=== PATIENT | male | born 1960 | race Caucasian/White ===

== ENCOUNTER 2020-05-26 06:02 | Day surgery (SDC) | payer BC ==
[~2020-05-26 06:02] MED LIST: ALPRAZolam 0.25 MG TAB PO PRN; ALPRAZolam 0.5 MG TAB PO PRN; ASPIRIN 325 MG TAB PO STA; ATORVASTATIN 80 MG TAB PO STA; HEPARIN SODIUM,PORCINE 10,000 UNIT in SODIUM CHLORIDE 0.9% 1,000 ML IRRIGATION PRN; HEPARIN SODIUM,PORCINE 2,500 UNIT in SODIUM CHLORIDE 0.9% 250 ML IRRIGATION PRN; NITROGLYCERIN SL TABS 0.4 MG TAB SUBLINGUAL PRN; SODIUM CHLORIDE 0.9% 1,000 ML in EMPTY BAG 1 BAG IV ONE
[2020-05-26] MEDS ORDERED: SODIUM CHLORIDE 0.9% 1,000 ML IV ONE (06:16)
[2020-05-26] MEDS ORDERED: LIDOCAINE 1% INJ 10MG/ML (20 ML MDV) ONE (07:19)
[2020-05-26] MEDS ORDERED: VERAPAMIL 2.5 MG/ML 2 ML AMP ONE (07:19)
[2020-05-26] MEDS ORDERED: fentaNYL (PF) 50 MCG/ML 2 ML AMP ONE (07:32)
[2020-05-26] MEDS ORDERED: fentaNYL (PF) 50 MCG/ML 2 ML AMP IVP ONE (07:35)
[2020-05-26] MEDS ORDERED: MIDAZOLAM 2 MG/2 ML VIAL IVP ONE ×2 (07:35→08:01)
[2020-05-26] MEDS ORDERED: LIDOCAINE 1% INJ 10MG/ML (20 ML MDV) SQ ONE (07:37)
[2020-05-26] MEDS ORDERED: VERAPAMIL SYRINGE (5 MG/10 ML) INTRAARTER ONE (07:37)
[2020-05-26] MEDS ORDERED: HEPARIN SODIUM 1,000 UN/ML (10ML VL) ONE (07:44)
[2020-05-26] MEDS ORDERED: HEPARIN SODIUM 1,000 UN/ML (10ML VL) IV ONE ×2 (07:44→07:52)
[2020-05-26] MEDS ORDERED: CLOPIDOGREL 75 MG TAB ONE (07:52)
[2020-05-26] MEDS ORDERED: CLOPIDOGREL 75 MG TAB PO ONE (08:02)
[2020-05-26] MEDS ORDERED: IOPAMIDOL-370 125ML BTL INJ ONE (08:11)
[2020-05-26] MEDS ORDERED: NITROGLYCERIN 1000MCG/10ML SYRINGE INTRACORON ONE (08:11)
[2020-05-26] MEDS ORDERED: IOPAMIDOL-370 100ML BTL INJ ONE (08:20)
[2020-05-26] MEDS ORDERED: NITROGLYCERIN SL TABS 0.4 MG TAB SUBLINGUAL PRN (08:35)
[2020-05-26] MEDS ORDERED: RX INFO: IV CONTRAST WAS GIVEN 1 EACH MISC MISCELLANE PRN (08:35)
[2020-05-26] MEDS ORDERED: ZOLPIDEM 5 MG TAB PO PRN (08:35)
[2020-05-26] MEDS ORDERED: ATROPINE SULFATE 0.1 MG/ML 10ML SYRINGE IV PRN (08:35)
[2020-05-26] MEDS ORDERED: MAG HYDROX/AL HYDROX/SIMETH 30 ML CUP PO PRN (08:35)
[2020-05-26] MEDS ORDERED: SODIUM CHLORIDE 0.9% 1,000 ML IV SCH (08:45)
[2020-05-26] MEDS: ASPIRIN 81 MG PO SCH (08:59)
[2020-05-26] MEDS ORDERED: ISOSORBIDE MONONITRATE ER 30 MG TAB.ER.24H PO SCH (09:00)
--- NOTE | 2020-05-26 10:07 | CC ---
CARDIAC CATHETERIZATION REPORT Mr. Tenorio is a 60-year-old male who presented with symptoms of exertional chest discomfort, hypertension, hyperlipidemia. In view of that, recommendation was made regarding cardiac catheterization. The procedures, risks, and complication were discussed with the patient who is in full understanding and agreement. PROCEDURE: Patient was brought to maintenance shop laborer in a fasting semi-sedated state after receiving fentanyl and Benadryl and achieving moderate conscious sedated state. Using Xylocaine anesthesia and Seldinger technique a 6-Faroese sheath was introduced right radial artery. Selective right and left coronary angiography performed using 5-Faroese 3.5 bend right and left Kee catheter. Multiple views of the coronary artery including hemiaxial views obtained. Following that, angioplasty and stenting was performed following that 5-Faroese tight pigtail catheter was introduced in the left ventricle and left ventricular end-diastolic pressure was calculated. Following that catheter and sheath were removed. Hemostasis was obtained with deployment of TR band. There was no immediate complication. Patient was returned to his room in stable condition. FINDINGS: LEFT MAIN: This is a large-sized vessel, bifurcating into left circumflex, left anterior descending artery. Left main coronary artery has no evidence of high-grade stenosis. LEFT ANTERIOR DESCENDING ARTERY: This is a heavily calcified vessel in the proximal segment, giving rise to a moderately sized diagonal branch. The diagonal branch has a 50% plaque proximally. The lumen of the diagonal branch is small in caliber. The left anterior descending artery has no evidence of high-grade stenosis. LEFT CIRCUMFLEX: This is a nondominant vessel, large in caliber giving rise to 3 obtuse marginal branches. The first and second are the largest in caliber. The first is very proximal. The second obtuse marginal branch has a 99% stenosis in the proximal segment. The rest of the vessel has no evidence of high-grade stenosis. RIGHT CORONARY ARTERY: This is a dominant vessel bifurcating distally PDA and posterolateral segment and branches. The right coronary artery has diffuse intimal disease in the mid segment up to 60% to 70%. Distally, it is totally occluded with minimal antegrade flow. COLLATERALS: There is good collateral from the left coronary system through the septal perforators to the PDA and PLV. LEFT VENTRICULOGRAM: Left ventriculogram was not performed. HEMODYNAMICS: There was no gradient across the aortic valve. The left ventricular end-diastolic pressure was 6-8 mmHg. CONCLUSION: 1. Chronically occluded distal right coronary artery. 2. Critical stenosis in the second obtuse marginal branch. 3. Mild disease in the small diagonal branch. RECOMMENDATION: In view of finding anatomy, I recommend proceeding with angioplasty and stenting of the left circumflex obtuse marginal branch. The procedure, risks and complications were discussed with the patient who is in full understanding and agreement. MMSTELLA / JUAN DANIELN: [id number] /
--- NOTE | 2020-05-26 10:28 | PTCA ---
PERCUTANEOUSTRANS CORORONARY ANGIOGRAPHY Mr. Tenorio is a 60-year-old male with a known history of hypertension and hyperlipidemia, who presented with symptoms of angina pectoris, underwent cardiac catheterization was found to have critical stenosis involving the second obtuse marginal branch. In view of that, recommendation was made regarding angioplasty and stenting. The procedure as well as the risks and the complications were discussed with the patient who is in full understanding and agreement. PROCEDURE: A 6-American FL 3.5 guiding catheter was introduced in the system. After cannulating the left main, a 0.014 balanced medium weight J-wire was advanced across the lesion, positioned distally then a 2.5 x 12 mm NC Trek balloon was advanced and one inflation at 10 atmospheres was done. Following that, the balloon was removed and a 2.5 x 15 mm Xience [place] stent was advanced, deployed and post dilated at 16 atmospheres. After the last inflation, after appropriate wait, the balloon and the guidewire were withdrawn back in the guiding catheter. Images were obtained and repeated. Those images reveal stable successful stenting. At that point, the guiding catheter, the balloon and the guidewire were removed and a 5-American tight pigtail catheter introduced in the left ventricle and left ventricular end-diastolic pressure was calculated. Following that, catheter and sheath were removed. Hemostasis was obtained with deployment of a TR band. There was no immediate complication. Patient was returned to his room in stable condition. Of note, the patient received a total of 9000 units of intravenous heparin throughout the procedure and his ACT was monitored. He received intraarterial verapamil. He had no chest discomfort or significant EKG changes with the inflations. RESULTS: Successful stenting of the second obtuse marginal branch with reduction of stenosis from 99% to 0%. RECOMMENDATION: Patient will be continued on aspirin, Plavix and statin with the aggressive coronary risk modification that has been initiated and he will be evaluated to undergo attempt to percutaneous revascularize the totally occluded right coronary artery. Those findings and recommendations were discussed with the patient and his family who are in full understanding and agreement. Duration of sedation is 43 minutes. MMJESUSL / IJN: [id number] /
--- NOTE | 2020-05-26 10:31 | LTR ---
May 26, 2020 Re: Rafi Tenorio Dear Dr. Betancourt: I had the opportunity to perform cardiac catheterization and coronary angioplasty and stenting on Mr. Tenorio at [facility] on the 26 of May and a full copy of the procedure note will be forwarded to you. In brief, he was found to have a critical stenosis involving the second obtuse marginal branch with totally occluded distal right coronary artery. He underwent successful stenting of the obtuse marginal branch and he will be brought back to attempt to recanalize the chronically occluded right coronary artery. I will keep you updated on his progress. Thank you again for allowing me the opportunity to participate in his care. Please feel free to call for any questions. Sincerely yours, MD GREY Weaver / JUAN DANIELN: [id number] /
[2020-05-26 14:51] VITALS: BMI 31.5
[2020-05-26] MEDS ORDERED: ACETAMINOPHEN TAB 500 MG TAB PO STA (17:03)
[2020-05-26 20:13] VITALS: RESP 16
[2020-05-26] MEDS ORDERED: ATORVASTATIN 80 MG TAB PO SCH (21:00)
[2020-05-26] MEDS ORDERED: METOPROLOL SUCCINATE (ER) 25 MG TAB.ER.24H PO SCH (21:00)
[2020-05-27 02:46] VITALS: PULSE 69
[2020-05-27 05:45] LABS: African American GFR (CKD) 80 (>60 ml/min/1.73 sqM); Anion Gap 5 mmol/L; Blood Urea Nitrogen 13 mg/dL (9-20); Calcium 11.2 mg/dL (8.4-10.2); Carbon Dioxide 27 mmol/L (22-30); Chloride 106 mmol/L (98-107); Cholesterol 208 mg/dL (<200); Glucose 97 mg/dL (74-99); HDL Cholesterol 23 mg/dL (40-60); Non-African American GFR(CKD) 69 (>60 ml/min/1.73 sqM); Potassium 5.3 mmol/L (3.5-5.1); Sodium 138 mmol/L (137-145)
[2020-05-27 05:53] LABS: Triglycerides 734 mg/dL (<150)
[2020-05-27 07:42] VITALS: BP 150/92; TEMP 98.8
[2020-05-27] MEDS ORDERED: lisinopriL 10 MG TAB PO SCH (09:00)
[2020-05-27] MEDS ORDERED: CLOPIDOGREL 75 MG TAB PO SCH (09:00)
[2020-05-27] MEDS ORDERED: FENOFIBRATE 160 MG TAB PO SCH (09:00)
--- NOTE | 2020-05-27 09:05 | PN ---
PROGRESS NOTE Mr. Tenorio is a 60-year-old male who was recently diagnosed with hypertension, hyperlipidemia who had symptoms consistent with angina pectoris, underwent cardiac catheterization was found to have a chronic occlusion of the right coronary artery with critical stenosis in the second obtuse marginal branch. He underwent stenting of the obtuse marginal branch. He is doing well today. He is denying any chest pain. No dizziness. No palpitation. No nausea. He is complaining of headache. He continues to be on aspirin once a day, Lipitor 75 mg daily, Lipitor 80 mg daily, isosorbide mononitrate 30 mg daily, lisinopril 10 mg daily, metoprolol succinate 25 mg daily. PHYSICAL EXAMINATION: Blood pressure running in the 130s to 150s with the heart rate in the 60s. LUNGS: Clear. HEART: Regular rate and rhythm. S1, S2. No S3. No rub. ABDOMEN: Soft, nontender. EXTREMITIES: No edema. Right radial pulse intact. LAB DATA: Lab data revealed BUN and creatinine of 13 and 1.15. Potassium is 5.3. Cholesterol is 208, triglycerides of 734. EKG revealed no acute changes. IMPRESSION: 1. Status post stenting of the left circumflex second obtuse marginal branch. 2. Chronic occluded right coronary artery. 3. Hypertension. 4. Hyperlipidemia with severe hypertriglyceridemia. RECOMMENDATION: I will add to his regimen fenofibrate. I will stop the isosorbide mononitrate because of the headache. He should be able to be discharged home today and followed next week to make a decision regarding re-admission for attempt to recanalize the right coronary artery. MMODL / IJN: [id number] /
[2020-05-27] MEDS: ASPIRIN 81 MG PO SCH (09:13)
== END 2020-05-27 09:30 | disposition home or self-care (01) ==
LOC: CATHCVL 06:02 → 6NMEDSUR 12:03 → CATHCVL 05-27 09:30
PROVIDERS: ATTEND Internal Medicine Interventional Cardiology
DX: I25.110 Atherosclerotic heart disease of native coronary artery with unstable angina pectoris (principal); I25.82 Chronic total occlusion of coronary artery; R07.89 Other chest pain; R06.09 Other forms of dyspnea; R42 Dizziness and giddiness; I10 Essential (primary) hypertension; E78.2 Mixed hyperlipidemia; Z79.899 Other long term (current) drug therapy; Z87.891 Personal history of nicotine dependence; Z79.82 Long term (current) use of aspirin; Z82.49 Family history of ischemic heart disease and other diseases of the circulatory system
CPT/HCPCS: 93458; 85347; 80061; 80048; C9600; C1769 ×2; C1887; C1725; C1874; C1894; J2250; J2001; J3010; J1644; Q9967 ×2

== ENCOUNTER → 2020-06-16 | Outpatient (CLI) | payer BC ==
--- NOTE | 2020-06-16 09:50 | US ---
EXAMINATION TYPE: US thyroid st tissue head/neck DATE OF EXAM: 06/16/2020 COMPARISON: NONE CLINICAL HISTORY: 60-year-old male E04.1 Thyroid nodule. Lump rt side of neck TECHNIQUE: Multiple sonographic images of the thyroid gland are obtained. FINDINGS: GLAND SIZE: Right Lobe: 5.1 x 1.8 x 1.8 cm Overall Parenchyma: homogenous Left Lobe: 3.8 x 1.0 x 1.4 cm Overall Parenchyma: homogeneous Isthmus Thickness: 0.48 cm NODULES RIGHT: # of nodules measured on right: 0 Hypoechoic lesion versus cystic with some internal echoes measuring 1.0 x .4 x .6 cm noted at the pat ient's palpable site located just above the right lobe of the thyroid gland. LEFT: # of nodules measured on left: 0 ISTHMUS: # of nodules measured in the isthmus: 0 Bilateral neck scanned, no evidence of lymphadenopathy. IMPRESSION: No discrete nodule within the thyroid gland itself. At the patient's right-sided palpable site, there is a 1 cm lesion just above the thyroid gland. A thyroglossal duct cyst and nonenlarged lymph node a re some differential considerations. Consider contrast enhanced CT of the neck
== END | disposition home or self-care (01) ==
LOC: RADUSWWP 08:27
PROVIDERS: ATTEND Otolaryngology
DX: E07.89 Other specified disorders of thyroid (principal); E83.52 Hypercalcemia
CPT/HCPCS: 76536; 83970

== ENCOUNTER 2020-06-18 07:52 | Day surgery (SDC) | payer BC ==
[2020-06-12 11:28] VITALS: BMI 31.4
[2020-06-18] MEDS ORDERED: SODIUM CHLORIDE 0.9% 1,000 ML IV ONE (08:05)
[2020-06-18] MEDS ORDERED: LIDOCAINE 1% INJ 10MG/ML (20 ML MDV) ONE (08:20)
[2020-06-18 08:24] LABS: Basophils # (A) 0.1 k/uL (0-0.2); Basophils % (A) 1 %; Eosinophils # (A) 0.2 k/uL (0-0.7); Eosinophils % (A) 2 %; HCT 42.5 % (39.0-53.0); HGB 14.5 gm/dL (13.0-17.5); Lymphocytes # (A) 2.4 k/uL (1.0-4.8); Lymphocytes % (A) 29 %; MCH 31.7 pg (25.0-35.0); MCHC 34.1 g/dL (31.0-37.0); MCV 92.9 fL (80.0-100.0); Mean Platelet Volume 7.2; Monocytes # (A) 0.5 k/uL (0-1.0); Monocytes % (A) 6 %; Neutrophils # (A) 5.1 k/uL (1.3-7.7); Neutrophils % (A) 61 %; Platelet Count 311 k/uL (150-450); RBC 4.58 m/uL (4.30-5.90); WBC 8.4 k/uL (3.8-10.6)
[2020-06-18] MEDS ORDERED: VERAPAMIL 2.5 MG/ML 2 ML AMP ONE (08:28)
[2020-06-18] MEDS ORDERED: HEPARIN SODIUM 1,000 UN/ML (10ML VL) ONE ×2 (08:50→11:28)
[2020-06-18] MEDS ORDERED: fentaNYL (PF) 50 MCG/ML 2 ML AMP ONE (08:50)
[2020-06-18] MEDS ORDERED: fentaNYL (PF) 50 MCG/ML 2 ML AMP IVP ONE (09:38)
[2020-06-18] MEDS ORDERED: LIDOCAINE 1% INJ 10MG/ML (20 ML MDV) SQ ONE (09:40)
[2020-06-18] MEDS: MIDAZOLAM 2 MG/2 ML VIAL IVP ONE ×2 (09:40→09:54)
[2020-06-18] MEDS ORDERED: VERAPAMIL SYRINGE (5 MG/10 ML) INTRAARTER ONE (09:42)
[2020-06-18] MEDS: HEPARIN SODIUM 1,000 UN/ML (10ML VL) IV ONE ×2 (09:44→09:53)
[2020-06-18] MEDS ORDERED: IOPAMIDOL-370 125ML BTL INJ ONE ×2 (10:17→11:02)
[2020-06-18] MEDS ORDERED: NITROGLYCERIN 1000MCG/10ML SYRINGE INTRACORON ONE (10:39)
[2020-06-18] MEDS ORDERED: MIDAZOLAM 2 MG/2 ML VIAL IVP ONE (10:48)
[2020-06-18] MEDS ORDERED: IOPAMIDOL-370 100ML BTL INJ ONE (11:25)
[2020-06-18] MEDS ORDERED: HEPARIN SODIUM 1,000 UN/ML (10ML VL) IV ONE (11:27)
[2020-06-18] MEDS ORDERED: MAG HYDROX/AL HYDROX/SIMETH 30 ML CUP PO PRN (11:37)
[2020-06-18] MEDS ORDERED: ZOLPIDEM 5 MG TAB PO PRN (11:37)
[2020-06-18] MEDS ORDERED: RX INFO: IV CONTRAST WAS GIVEN 1 EACH MISC MISCELLANE PRN (11:37)
[2020-06-18] MEDS ORDERED: NITROGLYCERIN SL TABS 0.4 MG TAB SUBLINGUAL PRN (11:37)
[2020-06-18] MEDS ORDERED: ATROPINE SULFATE 0.1 MG/ML 10ML SYRINGE IV PRN (11:37)
[2020-06-18] MEDS ORDERED: SODIUM CHLORIDE 0.9% 1,000 ML IV SCH (11:45)
--- NOTE | 2020-06-18 12:13 | PTCA ---
PERCUTANEOUSTRANS CORORONARY ANGIOGRAPHY CORONARY ANGIOPLASTY PROCEDURE NOTE Mr. Tenorio is a 60-year-old male with a known history of coronary artery disease who recently underwent cardiac catheterization was found to have a totally occluded RCA with critical stenosis in the obtuse marginal branch, underwent stenting of the obtuse marginal branch. He has been admitted electively to undergo stenting of the RCA. The procedure as well as the risks and the complications were discussed with the patient who is in full understanding and agreement. PROCEDURE: Patient was brought to the engineering lab technician in a fasting semi-sedated state after receiving fentanyl and Benadryl and achieving moderate conscious sedated state. Using Xylocaine anesthesia and Seldinger technique, a 6-Sierra Leonean sheath was introduced in the right radial artery. Selective right and left coronary angiography performed using 6-S[place]an AL 0.75 guiding catheter. After cannulating the right coronary ostium, a SuperCross microcatheter with a 0.014 balanced medium weight J-wire were advanced. The wire was unsuccessful in crossing the lesion. At that point, the wire was removed and a 0.014 Whisper J-wire was advanced and was unsuccessful crossing the lesion. At that time, the wire was removed and a Fielder XT wire was advanced, was able to cross the lesion, positioned distally. Subsequently, the microcatheter was removed and a 1.0 x 8 mm Sapphire balloon was advanced and multiple inflations throughout the distal vessel were done. Following that, the balloon was removed and a 1.5 x 12 mm mini Trek balloon was advanced and multiple inflations at maximum of 12 atmospheres were done. Following that, the balloon was removed and the SuperCross was reintroduced and the wire was exchanged to a 0.014 balanced medium weight J-wire. After removing the microcatheter, a 2.25 x 15 mm NC Trek balloon was advanced and multiple inflations were done through the vessel at a maximum of 12 atmospheres. After removing that balloon, a 2.5 x 20 mm NC Emerge balloon was advanced and multiple inflations were done at 12 atmospheres. Following that, a 3.0 x 38 mm Xience [place] stent was deployed distally and postdilated at 16 atmospheres. After removing the balloon, the another 3.0 x 38 mm Xience [place] stent was deployed proximal to that stent and postdilated at 16 atmospheres. Following that, the balloon was removed and a 3.25 x 33 mm Xience [place] stent was deployed proximally and postdilated 16 atmospheres. Following that, the balloon was removed and a [employer] Nikolai Eye alatna IVUS catheter was introduced and measurement were obtained. Following that, the IVUS catheter was removed and a 4.0 x 20 mm NC Trek balloon was advanced and multiple inflations throughout the vessel were done at maximum of 12 atmospheres. After the last inflation, after appropriate wait, the balloon and the guidewire were withdrawn back in the guiding catheter. Images were obtained and repeated. Those images reveal stable successful stenting. At that point, the guiding catheter, the balloon and guidewire were removed. The sheath was removed. Hemostasis was obtained with deployment of a TR band. There was no immediate complication. Patient was returned to his room in stable condition. Of note, the patient received a total of 11,000 units of intravenous heparin throughout the procedure, his ACT was followed. He was continued on clopidogrel. He had no chest discomfort or EKG changes with the inflations. RESULTS: Successful stenting and recanalization of a totally occluded RCA with reduction of stenosis from 100% to 0%. RECOMMENDATION: Patient will be continued on aspirin, Plavix, beta keo, FADI inhibitor and statin. The importance of dual antiplatelet treatment were discussed with the patient and his family and they are in full understanding and agreement. Duration of the sedation is 108 minutes. MMODL / IJN: [id number] /
--- NOTE | 2020-06-18 12:17 | LTR ---
June 18, 2020 Re: Rafi Nevarezters Dear Dr. Betancourt: I had the opportunity to perform coronary angioplasty and stenting on Mr. Tenorio at [facility] on 18 of June and a full copy of the procedure note will be forwarded to you. In brief, he underwent successful recanalization of a chronically occluded right coronary artery. I am hopeful that this procedure will stabilize his status. Thank you again for allowing me the opportunity to participate in his care. Please feel free to call for any questions. Sincerely yours, MD GREY Weaver / TOM: [id number] /
[2020-06-18] MEDS ORDERED: METOPROLOL SUCCINATE (ER) 25 MG TAB.ER.24H PO SCH (21:00)
[2020-06-18] MEDS ORDERED: ATORVASTATIN 40 MG TAB PO SCH (21:00)
[2020-06-19 07:15] LABS: African American GFR (CKD) 65 (>60 ml/min/1.73 sqM); Anion Gap 7 mmol/L; Blood Urea Nitrogen 15 mg/dL (9-20); Calcium 11.4 mg/dL (8.4-10.2); Carbon Dioxide 24 mmol/L (22-30); Chloride 106 mmol/L (98-107); Glucose 123 mg/dL (74-99); Non-African American GFR(CKD) 56 (>60 ml/min/1.73 sqM); Sodium 137 mmol/L (137-145)
[2020-06-19 07:47] VITALS: BP 101/66; PULSE 72; RESP 16; TEMP 97.9
--- NOTE | 2020-06-19 08:21 | PN ---
PROGRESS NOTE Mr. Tenorio is a 60-year-old male with history of coronary artery disease who underwent angioplasty and stenting of the obtuse marginal branch 2 weeks ago was found to have totally occluded right coronary artery, underwent stenting of that vessel. He is doing well this morning. He is feeling well. His breathing stable. No dizziness. No palpitation. No nausea. He continues to be on aspirin once a day, Lipitor 40 mg daily, Plavix 75 mg daily, fenofibrate 160 mg daily, lisinopril 10 mg daily, metoprolol succinate 25 mg daily. PHYSICAL EXAMINATION: Blood pressure 106/60 with the heart rate in the 70s. LUNGS: Clear. HEART: Regular rate and rhythm. S1, S2. No S3. No rub. ABDOMEN: Soft, nontender. EXTREMITIES: No edema. Right radial pulse intact. LAB DATA: EKG shows no acute changes. BUN and creatinine 15 and 1.35. Potassium 5.0. Hemoglobin 14.5. IMPRESSION: 1. Status post stenting of the totally occluded right coronary artery. 2. Prior stenting of the obtuse marginal branch. 3. Hypertension. 4. Hyperlipidemia. RECOMMENDATION: Patient will be discharged home today and followed as an outpatient. MMODL / IJN: [id number] /
[2020-06-19] MEDS ORDERED: ASPIRIN 81 MG PO SCH (09:00)
[2020-06-19] MEDS ORDERED: FENOFIBRATE 160 MG TAB PO SCH (09:00)
[2020-06-19] MEDS ORDERED: lisinopriL 10 MG TAB PO SCH (09:00)
[2020-06-19] MEDS ORDERED: CLOPIDOGREL 75 MG TAB PO SCH (09:00)
== END 2020-06-19 09:45 | disposition home or self-care (01) ==
LOC: CATHCVL 07:52 → 6NMEDSUR 11:26 → CATHCVL 06-19 09:45
PROVIDERS: ATTEND Internal Medicine Interventional Cardiology
DX: I25.10 Atherosclerotic heart disease of native coronary artery without angina pectoris (principal); I25.82 Chronic total occlusion of coronary artery; I10 Essential (primary) hypertension; E78.2 Mixed hyperlipidemia; E78.5 Hyperlipidemia, unspecified; Z82.49 Family history of ischemic heart disease and other diseases of the circulatory system; Z95.5 Presence of coronary angioplasty implant and graft; Z79.02 Long term (current) use of antithrombotics/antiplatelets; Z79.82 Long term (current) use of aspirin; Z79.899 Other long term (current) drug therapy
CPT/HCPCS: 85347; 80048; 85025; C9607; C1769 ×4; C1887 ×2; C1725 ×5; C1753; C1874; C1894; J2250; J2001; J3010; J1644; Q9967 ×2

== ENCOUNTER → 2020-07-04 | Outpatient (CLI) | payer BC ==
--- NOTE | 2020-07-04 11:36 | CT ---
EXAMINATION TYPE: CT soft tissue neck w con DATE OF EXAM: 07/04/2020 COMPARISON: None HISTORY: R22.1 Right neck mass, E21.3 elevated pth CONTRAST: CT scan of the neck is performed with IV Contrast, patient injected Isovue 300/[address] of the neck was performed from the skull base through the lung apices. The markers placed at the site of clinical concern right neck corresponds to a 1.7 cm lipoma. No evid ence for solid mass. AIRWAY: The supraglottic, glottic, and subglottic portions of the airway appear patent and free of mass. SALIVARY GLANDS: The submandibular and parotid glands are free of mass or inflammatory process. THYROID GLAND: No nodules or masses seen. LYMPH NODES: No adenopathy seen greater than 1cm. LUNG APICES: No nodule or mass is seen. OTHER: Vascular structures are patent. No significant degenerative change of the cervical spine. N o abscess seen. IMPRESSION: The markers placed at the site of clinical concern right neck corresponds to a 1.7 cm lipoma. No evid ence for solid mass.
--- NOTE | 2020-07-05 06:51 | NM ---
EXAMINATION TYPE: Portable chest DATE OF EXAM: 07/05/2020 COMPARISON: 07/04/2020 HISTORY: Shortness of breath TECHNIQUE: Single upright AP portable chest is obtained. FINDINGS: There are scattered partially consolidative opacities in the lung bases bilaterally. The interstitial prominence seen in the upper lobes is diminished compared to the prior study. There is no pneumothor ax. There is a Midway-Phyllis catheter unchanged in position. There has been interval removal of the ET tu be and NG tube. The osseous structures are intact. IMPRESSION: Interval improvement in the bilateral interstitial edema. Few scattered infiltrates are seen in the l ower lobes bilaterally left greater than right. No change in position of the Midway-Phyllis catheter. NG t ube.
== END | disposition home or self-care (01) ==
LOC: RADCTMAIN 10:30
PROVIDERS: ATTEND Otolaryngology
DX: R22.1 Localized swelling, mass and lump, neck (principal); E21.3 Hyperparathyroidism, unspecified
CPT/HCPCS: 70491; 78071; A9500; Q9967

== ENCOUNTER → 2020-10-06 | Outpatient (CLI) | payer BC ==
--- NOTE | 2020-10-06 20:34 | FL ---
EXAMINATION TYPE: FL barium swallow w video DATE OF EXAM: 10/06/2020 CLINICAL HISTORY: 60 year-old male R13.10 Dysphagia. Sensation of liquid sticking in the throat. TECHNIQUE: Deglutition study is performed utilizing thin liquid barium, honey and nectar thick liqui d barium, barium thick applesauce, and barium coated cracker. COMPARISON: None. Total fluoroscopy time: 1 minute 26 seconds. Total images: None. Real-time fluoroscopy support was provided to speech pathology. FINDINGS: The oral and pharyngeal phases show satisfactory initiation and propagation with all modalities teste d. Normal mastication is seen with solid modalities tested. There is no evidence of penetration or aspiration with any modality tested. No significant pharyngeal residue was appreciated. IMPRESSION: Normal deglutition study. Please refer to speech therapist notes for further details if necessary.
== END | disposition home or self-care (01) ==
LOC: RADFLMAIN 10:48
PROVIDERS: ATTEND Otolaryngology
DX: R13.10 Dysphagia, unspecified (principal)
CPT/HCPCS: 74230

== ENCOUNTER → 2020-10-23 | Outpatient (CLI) | payer BC ==
--- NOTE | 2020-10-23 11:46 | FL ---
EXAMINATION TYPE: FL barium swallow DATE OF EXAM: 10/23/2020 CLINICAL HISTORY: Dysphagia TECHNIQUE: A double contrast esophagram is performed utilizing air and barium. A total of 40 to sec onds of fluoroscopic time was utilized during procedure and 37 images obtained. COMPARISON: None FINDINGS: The esophagus shows normal motility and emptying into the stomach. No evidence of hiatal h ernia or stricture noted. No significant gastroesophageal reflux was seen during real time performanc e of this study. IMPRESSION: No significant abnormality is seen to account for patient's symptoms.
== END | disposition home or self-care (01) ==
LOC: RADUSWWP 07:43
PROVIDERS: ATTEND Otolaryngology
DX: R13.10 Dysphagia, unspecified (principal)
CPT/HCPCS: 74220

== ENCOUNTER 2021-01-14 10:39 | Day surgery (SDC) | payer BC ==
[2021-01-12 12:11] VITALS: BMI 31.7
[~2021-01-14 10:39] MED LIST changes: -SODIUM CHLORIDE 0.9% 1,000 ML in EMPTY BAG 1 BAG IV ONE
[2021-01-14] MEDS: SODIUM CHLORIDE 0.9% 1,000 ML in EMPTY BAG 1 BAG IV SCH ×2 (11:20→16:53)
[2021-01-14] MEDS ORDERED: VERAPAMIL 2.5 MG/ML 2 ML AMP ONE (12:55)
[2021-01-14] MEDS ORDERED: fentaNYL (PF) 50 MCG/ML 2 ML AMP ONE (12:56)
[2021-01-14] MEDS ORDERED: HEPARIN SODIUM 1,000 UN/ML (10ML VL) ONE ×2 (12:56→14:26)
[2021-01-14] MEDS ORDERED: LIDOCAINE 1% INJ 10MG/ML (20 ML MDV) ONE (12:56)
[2021-01-14] MEDS ORDERED: fentaNYL (PF) 50 MCG/ML 2 ML AMP IVP ONE (13:15)
[2021-01-14] MEDS ORDERED: LIDOCAINE 1% INJ 10MG/ML (20 ML MDV) SQ ONE (13:15)
[2021-01-14] MEDS: MIDAZOLAM 2 MG/2 ML VIAL IVP ONE ×2 (13:17→13:36)
[2021-01-14] MEDS ORDERED: VERAPAMIL SYRINGE (5 MG/10 ML) INTRAARTER ONE (13:18)
[2021-01-14] MEDS: HEPARIN SODIUM 1,000 UN/ML (10ML VL) IVP ONE ×3 (13:22→13:40)
[2021-01-14] MEDS ORDERED: NITROGLYCERIN 1000MCG/10ML SYRINGE INTRACORON ONE (13:45)
[2021-01-14] MEDS ORDERED: IOPAMIDOL-370 125ML BTL INJ ONE (13:55)
[2021-01-14] MEDS ORDERED: MIDAZOLAM 2 MG/2 ML VIAL IV ONE (14:14)
[2021-01-14] MEDS ORDERED: IOPAMIDOL-370 100ML BTL INJ ONE (14:24)
[2021-01-14] MEDS ORDERED: HEPARIN SODIUM 1,000 UN/ML (10ML VL) IV ONE (14:30)
[2021-01-14] MEDS ORDERED: NITROGLYCERIN SL TABS 0.4 MG TAB SUBLINGUAL PRN (14:39)
[2021-01-14] MEDS ORDERED: MAG HYDROX/AL HYDROX/SIMETH 30 ML CUP PO PRN (14:39)
[2021-01-14] MEDS ORDERED: ZOLPIDEM 5 MG TAB PO PRN (14:39)
[2021-01-14] MEDS ORDERED: RX INFO: IV CONTRAST WAS GIVEN 1 EACH MISC MISCELLANE PRN (14:39)
[2021-01-14] MEDS ORDERED: ATROPINE SULFATE 0.1 MG/ML 10ML SYRINGE IV PRN (14:39)
[2021-01-14] MEDS ORDERED: SODIUM CHLORIDE 0.9% 1,000 ML IV SCH (14:45)
--- NOTE | 2021-01-14 15:43 | PTCA ---
PERCUTANEOUSTRANS CORORONARY ANGIOGRAPHY Mr. Tenorio is a 60-year-old male with known history of coronary artery disease who presented with symptoms of angina pectoris, underwent cardiac catheterization, was found to have significant in-stent restenosis in the RCA and the right PLV. In view of that, recommendation regarding angioplasty and stenting. The procedure as well as the risks and the complications were discussed with the patient who is in full understanding and agreement. PROCEDURE: An AL guiding catheter was introduced into the system and after cannulating the right coronary ostium a 0.014 balanced medium weight J-wire was advanced across the lesion, positioned in the distal PLV. Subsequently, 3.0 x 15 mm NC Trek balloon was advanced and multiple inflations at a maximum 10 atmospheres were done. Following that, the balloon was removed and a 3.5 x 23 mm Xience SkyPoint stent was deployed in the PLV and post-dilated at 16 atmospheres. Following that, the balloon was removed and a 4.0 x 28 mm Xience SkyPoint stent was deployed in the distal RCA and post dilated at 16 atmospheres and subsequently a 4.0 x 23 mm Xience Fox point stent was deployed in the mid RCA and postdilated 16 atmospheres. After removing the balloon, and IVUS [place] [facility] was introduced and imaging were performed. Following that, a 4.5 x 15 mm NC Trek balloon was advanced and multiple inflations in the distal RCA, mid and proximal were done at maximum of 12 atmospheres. Following that, the balloon was removed and the intravascular ultrasound catheter was re-introduced and imaging was repeated and a 5.0 x 20 mm NC Trek balloon was advanced and multiple inflations in the distal RCA, mid and proximal RCA was done at maximum of 12 atmospheres. After the last inflation, after appropriate wait, the balloon and the guidewire were withdrawn back in the guiding catheter. Images were obtained, repeated. Those images revealed stable successful stenting. At that point, the guiding catheter, the balloon and the guidewire were removed. The sheath was removed. Hemostasis was obtained with deployment of a TR band. There was no immediate complication. Patient is returned to his room in stable condition. Of note, the patient received a total of 9000 units of intravenous heparin throughout the procedure, his ACT was followed and he received intra-arterial verapamil. He had no chest discomfort or significant EKG changes. RESULTS: Successful stenting of a long segment of in-stent restenosis involving the right PLV, distal RCA and mid RCA with reduction of stenosis from 99% to 0%. RECOMMENDATIONS: The results were discussed with the patient. I recommended dual antiplatelets treatment with coronary risks modification. GREY / TOM: [id number] / MTDD
--- NOTE | 2021-01-14 15:54 | CC ---
CARDIAC CATHETERIZATION REPORT HISTORY: A 60-year-old male known history of coronary artery disease who presented in May of this year with an acute myocardial infarction, underwent stenting of the obtuse marginal branch and subsequently admitted in June and underwent cannulation of chronically occluded obtuse marginal. Recently he has been complaining of an exertional chest discomfort reminding him of the symptoms he had prior to his PCI. In view of that, recommendation was made regarding cardiac catheterization. The procedure as well as the risks and complications were discussed with the patient who is in full understanding and agreement. PROCEDURE: (dictation lapse) COLLATERALS: There are collaterals from the left coronary system toward the right PDA and PLV. LEFT VENTRICULOGRAM: Left ventriculogram is not performed. HEMODYNAMICS: There was no gradient across the aortic valve. The left ventricular end-diastolic pressure was significant multiple segments in the RCA to the second obtuse marginal branch. Moderate significant disease in the . MMODL / IJN: [id number] /
[2021-01-14] MEDS: NON FORMULARY DRUG (Icosapent Ethyl [Icosapent Ethyl] 1 GM Capsule) PO SCH (20:31)
[2021-01-14] MEDS ORDERED: METOPROLOL SUCCINATE (ER) 25 MG TAB.ER.24H PO SCH (21:00)
[2021-01-15] MEDS: SODIUM CHLORIDE 0.9% 1,000 ML in EMPTY BAG 1 BAG IV SCH (03:48)
[2021-01-15 05:21] LABS: African American GFR (CKD) 68 (>60 ml/min/1.73 sqM); Anion Gap 6 mmol/L; Blood Urea Nitrogen 19 mg/dL (9-20); Calcium 11.5 mg/dL (8.4-10.2); Carbon Dioxide 25 mmol/L (22-30); Chloride 108 mmol/L (98-107); Glucose 99 mg/dL (74-99); Non-African American GFR(CKD) 59 (>60 ml/min/1.73 sqM); Potassium 4.9 mmol/L (3.5-5.1); Sodium 139 mmol/L (137-145)
[2021-01-15] MEDS: NON FORMULARY DRUG (Icosapent Ethyl [Icosapent Ethyl] 1 GM Capsule) PO SCH (07:46)
[2021-01-15 07:59] VITALS: BP 121/78; PULSE 68; RESP 17; TEMP 98
--- NOTE | 2021-01-15 08:24 | PN ---
PROGRESS NOTE Mr. Tenorio is a 60-year-old male with known history of coronary artery disease who presented with symptoms of recent worsening angina pectoris, underwent cardiac catheterization. He was found to have significant in-stent restenosis of the right coronary artery. He underwent stenting of that vessel with intravascular ultrasound guidance. He is doing well this morning. He is denying any chest pain. His breathing status is stable. He denies any dizziness or palpitation. He denies any nausea. He continues to be on aspirin once a day, Lipitor 40 mg daily, Plavix 75 mg daily, fenofibrate 160 mg daily, 2 g twice a day, losartan 50 mg daily, metoprolol succinate 25 mg daily. PHYSICAL EXAMINATION: Blood pressure 125/80 with a heart rate in 50s. Lungs: Clear. Heart regular rate and rhythm S1, S2. No S3. No rub. Abdomen: Soft nontender. Extremities: No edema. Right radial pulse intact. LAB DATA: Lab data revealed BUN and creatinine of 19, 1.3, potassium 4.9. EKG shows no acute changes. IMPRESSION: 1. Status post stenting of the right coronary artery. 2. History of multivessel coronary artery disease. 3. Hypertension. 4. Hyperlipidemia. RECOMMENDATIONS: Patient will be discharged home today and followed as an outpatient. MMODL / IJN: [id number] /
--- NOTE | 2021-01-15 08:29 | CC ---
CARDIAC CATHETERIZATION REPORT DATE OF SERVICE: January 14, 2021 Mr. Tenorio has a known history of coronary artery disease. He has sustained a myocardial infarction in May of this year. Subsequently, underwent stenting of the obtuse marginal branch and in June, recannulization of chronically totally occluded RCA. He presented with symptoms of recent worsening angina pectoris with physical activity. In view of that, recommendation was made regarding cardiac catheterization. The procedure as well as the risks and the complications were discussed with the patient who is in full understanding and agreement. PROCEDURE: Patient was brought to photofinishing laboratory worker in a fasting semi-sedated state after receiving fentanyl and Benadryl and achieving moderate conscious sedated state. Using Xylocaine anesthesia and Seldinger technique, a 6-Kinyarwanda sheath was introduced in the right radial artery. Selective right and left coronary angiography performed using 5-Kinyarwanda 3 and a half bend, right and left Kee catheter. Multiple views of the coronary arteries including hemiaxial views were obtained. The left ventricular end-diastolic pressure was calculated. Following that, catheter removed. Images were reviewed. FINDINGS: FLUOROSCOPY: There was significant calcification involving the LAD and the left main. CORONARY ANGIOGRAPHY: LEFT MAIN: This is a large sized vessel bifurcating into left circumflex, left anterior descending artery, left main coronary artery has no evidence of high-grade stenosis. LEFT ANTERIOR DESCENDING CORONARY ARTERY: This is a large-sized vessel reaching toward the apex with a wraparound apex segment giving rise to a moderately sized diagonal branch in the proximal segment. The diagonal branch has a 60-70 percent plaque. The rest of the vessel has no high-grade stenosis. LEFT CIRCUMFLEX: This is a nondominant vessel giving rise to 2 obtuse marginal branches. The stented segment in the second obtuse marginal branch is patent with no evidence of in-stent restenosis. RIGHT CORONARY ARTERY: This is a large dominant vessel bifurcating distally PDA and posterolateral segment and branches. The right coronary artery has a stent extending from the proximal the way to the PLV. There is significant in-stent restenosis in the PLV up to 90% as well as in the mid right coronary artery up to 99%. Slow flow into the RCA is noted. COLLATERALS: There is collateral from the left coronary system toward the right PDA and the right PLV. LEFT VENTRICULOGRAM: Not performed. HEMODYNAMICS: There was no gradient across the aortic valve. The left ventricle end-diastolic pressure was 12-14 mmHg. CONCLUSION: 1. Significant in-stent restenosis in the right coronary artery. 2. Moderate disease in the first diagonal branch without any progression. 3. Patent stent to the obtuse marginal branch. RECOMMENDATIONS: In view of findings and anatomy, I recommend proceeding with angioplasty and stenting of the right coronary artery. The procedure as well as risks and the complications were discussed with the patient who is in full understanding and agreement. MMODL / IJN: [id number] /
--- NOTE | 2021-01-15 08:32 | LTR ---
DATE OF SERVICE: 01/14/[address] Betancourt: I had the pleasure of performing cardiac catheterization and coronary angioplasty and stenting on Mr. Tenorio at [facility] on January 14 and a full copy of procedure note will be forwarded to you. In brief, he was found to have significant in-stent restenosis of the right coronary artery, underwent successful stenting of that vessel. I am hopeful that this procedure will stabilize his status. Thank you again for allowing me to participate in his care. Please feel free to call for any questions. Sincerely yours, MMSTELLA / JUAN DANIELN: [id number] /
[2021-01-15] MEDS ORDERED: LOSARTAN 50 MG TAB PO SCH (09:00)
[2021-01-15] MEDS ORDERED: MAGNESIUM OXIDE 400 MG TAB PO SCH (09:00)
[2021-01-15] MEDS ORDERED: FENOFIBRATE 160 MG TAB PO SCH (09:00)
[2021-01-15] MEDS ORDERED: CLOPIDOGREL 75 MG TAB PO SCH (09:00)
[2021-01-15] MEDS ORDERED: ASPIRIN 81 MG PO SCH (09:00)
[2021-01-15] MEDS ORDERED: ATORVASTATIN 40 MG TAB PO SCH (21:00)
== END 2021-01-15 08:36 | disposition home or self-care (01) ==
LOC: CATHCVL 10:39 → 6NMEDSUR 14:27 → CATHCVL 01-15 08:36
PROVIDERS: ATTEND Internal Medicine Interventional Cardiology
DX: T82.855A Stenosis of coronary artery stent, initial encounter (principal); I20.0 Unstable angina; I10 Essential (primary) hypertension; Z20.822 Contact with and (suspected) exposure to COVID-19; E78.5 Hyperlipidemia, unspecified; Z79.02 Long term (current) use of antithrombotics/antiplatelets; Z79.82 Long term (current) use of aspirin; Z79.899 Other long term (current) drug therapy; Z82.49 Family history of ischemic heart disease and other diseases of the circulatory system; Z87.891 Personal history of nicotine dependence; E78.00 Pure hypercholesterolemia, unspecified
CPT/HCPCS: 92978; 93458; 80048; 87635; C9600; C1769 ×2; C1887; C1894; C1725 ×3; C1753; C1874 ×3; J2250; J2001; J3010; J1644; Q9967 ×2

== ENCOUNTER → 2021-04-24 | Outpatient (CLI) | payer BC ==
--- NOTE | 2021-04-24 13:22 | XR ---
EXAMINATION TYPE: XR chest 2V DATE OF EXAM: 04/24/2021 COMPARISON: NONE TECHNIQUE: PA and lateral views submitted. HISTORY: Prostate cancer FINDINGS: The lungs are clear and there is no pneumothorax, pleural effusion, or focal pneumonia. Heart is no rmal. No overt failure. Azygos lobe fissure incidentally noted. Hypertrophic and degenerative change of the spine. Mild hyperinflation correlate for COPD. IMPRESSION: 1. No acute process.
--- NOTE | 2021-04-26 22:42 | CT ---
EXAMINATION TYPE: CT abdomen pelvis w con DATE OF EXAM: 04/24/2021 COMPARISON: NONE HISTORY: 61 year-old male C61, history of prostate ca TECHNIQUE: Contiguous axial scanning of the abdomen and pelvis following administration of 100 ml Iso teja 300 IV contrast. Delayed images through the kidneys and coronal/sagittal reconstructions perform ed. CT DLP: 1457 mGycm Automated exposure control for dose reduction was used. FINDINGS: Heart normal size without pericardial effusion. Mild dependent atelectasis in the lower lungs. No ple ural effusion. RCA and circumflex coronary artery calcifications are visualized in remarkable for cor onary artery disease. Liver mildly enlarged at 19.4 cm. There may be mild fatty infiltration of the liver. Portal venous sy stem is patent. No focal liver lesion. Portal venous system is patent. Gallbladder, adrenal glands, right kidney, spleen, and pancreas within normal limits. Tiny 9 mm cortical hypodensity kidney too small for accurate CT characterization, likely small cortic al cysts. No dilated small bowel, free fluid, or free air. Prominent 1.2 cm portacaval lymph node likely reactive. Otherwise, no mesenteric or retroperitoneal l ymphadenopathy. Normal appendix. Oral contrast progressed to the splenic flexure of the colon. There is mild overall stool burden. Scattered left-sided colonic diverticulosis. No pericolonic inflammatory change. Bladder urine distended. Prostate gland borderline enlarged at 4.0 cm wide. There is a 1.1 cm enhanci ng nodular focus along the left lateral portion of the prostate gland, axial image 90. No abnormal fl uid collection in the pelvis or pelvic lymphadenopathy seen. Bones: Multilevel rrmi-sy-zbbsjeyt degenerative disc disease especially mid lumbar spine. No osseous destructive process. Small inferior and plate Schmorl's node lower thoracic spine. IMPRESSION: 1. BORDERLINE ENLARGED PROSTATE GLAND MEASURING 4.0 CM WIDE. 2. A 1.1 CM NODULAR ENHANCING FOCUS ALONG THE LEFT LATERAL PORTION OF THE PROSTATE GLAND LIKELY CORRE SPONDS TO THE PATIENT'S PROSTATE CANCER. 3. NO SUSPICIOUS LYMPHADENOPATHY OR SCLEROTIC LESIONS TO SUGGEST METASTATIC DISEASE IN THE ABDOMEN OR PELVIS. 4. 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 5. SUSPECT UNDERLYING CAD. RCA AND CIRCUMFLEX CORONARY CALCIFICATIONS ARE VISUALIZED IN THE LOWER THUY ST.
== END | disposition home or self-care (01) ==
LOC: RADCTMAIN 12:54
PROVIDERS: ATTEND Urology
DX: C61 Malignant neoplasm of prostate (principal)
CPT/HCPCS: 71046; 74177; Q9967

== ENCOUNTER 2021-06-11 10:03 | Day surgery (SDC) | payer BC ==
[2021-06-09 12:01] VITALS: BMI 29.5
[~2021-06-11 10:03] MED LIST changes: -ALPRAZolam 0.25 MG TAB PO PRN; -ALPRAZolam 0.5 MG TAB PO PRN; -ASPIRIN 325 MG TAB PO STA; -ATORVASTATIN 80 MG TAB PO STA; -HEPARIN SODIUM,PORCINE 10,000 UNIT in SODIUM CHLORIDE 0.9% 1,000 ML IRRIGATION PRN; -HEPARIN SODIUM,PORCINE 2,500 UNIT in SODIUM CHLORIDE 0.9% 250 ML IRRIGATION PRN; +LACTATED RINGERS 1,000 ML IV SCH; +LIDOCAINE 1% (10MG/ML) FOR IV START INTRADERMA PRN; -NITROGLYCERIN SL TABS 0.4 MG TAB SUBLINGUAL PRN
[2021-06-11 10:40] VITALS: TEMP 98
[2021-06-11 10:50] LABS: HCT 39.6 % (39.0-53.0); HGB 13.7 gm/dL (13.0-17.5); MCH 32.4 pg (25.0-35.0); MCHC 34.4 g/dL (31.0-37.0); MCV 94.1 fL (80.0-100.0); Mean Platelet Volume 7.9; Platelet Count 282 k/uL (150-450); RBC 4.21 m/uL (4.30-5.90); RDW 13.1 % (11.5-15.5); WBC 6.6 k/uL (3.8-10.6)
[2021-06-11] MEDS ORDERED: LIDOCAINE 1% INJ 10MG/ML (20 ML MDV) ONE (10:54)
[2021-06-11] MEDS ORDERED: PROPOFOL 10 MG/ML 20 ML VIAL IV ONE (10:54)
--- NOTE | 2021-06-11 10:59 | P.GSHP ---
History of Present Illness H&P Date: 06/11/21 Chief Complaint: PositivecolonGuarded test This a 61-year-old male who's received diagnosed with prostate cancer. Patient had acolonGuarded test which was positive a prostate 6 months ago. He presents today for colonoscopy Past Medical History Past Medical History: Coronary Artery Disease (CAD), Cancer, Chest Pain / Angina, Hyperlipidemia, Hypertension, Prostate Disorder Additional Past Medical History / Comment(s): NODULE ON PARATHYROID, heart murmer, cologuard test "irregular", prostate cancer History of Any Multi-Drug Resistant Organisms: None Reported Past Surgical History: Heart Catheterization With Stent Additional Past Surgical History / Comment(s): total 7 cardiac stents, last 2 cardiac stents 01/2021, colonoscopy Past Anesthesia/Blood Transfusion Reactions: No Reported Reaction Additional Past Anesthesia/Blood Transfusion Reaction / Comment(s): PT HAS NEVER RECEIVED ANESTHESIA Date of Last Stent Placement:: 01/2021 Smoking Status: Former smoker - Past Family History Father Family Medical History: Cancer Additional Family Medical History / Comment(s): INDUSTRIAL DISEASE- ASBESTOS Medications and Allergies Home Medications Medication Instructions Recorded Confirmed Type Aspirin [Adult Low Dose Aspirin EC] 81 mg PO HS 05/22/20 06/11/21 History Atorvastatin [Lipitor] 40 mg PO HS 05/22/20 06/11/21 History Fish Oil/Dha/Epa [Fish Oil 1,200 1 each PO DAILY 05/22/20 06/11/21 History mg Fish Oil] Metoprolol Succinate (ER) [Toprol 25 mg PO HS 05/22/20 06/11/21 History XL] Clopidogrel [Plavix] 75 mg PO DAILY #90 tab 05/27/20 06/11/21 Rx Fenofibrate [Lofibra] 160 mg PO DAILY #90 tab 05/27/20 06/11/21 Rx Losartan [Cozaar] 50 mg PO DAILY 01/12/21 06/11/21 History icosapent ethyL [Icosapent Ethyl] 2 gm PO BID 01/12/21 06/11/21 History Allergies Allergy/AdvReac Type Severity Reaction Status Date / Time No Known Allergies Allergy Verified 06/11/21 10:29 Surgical - Exam Vital Signs Temp Pulse Resp BP Pulse Ox 98.0 F 65 18 151/73 100 06/11/21 10:33 06/11/21 10:33 06/11/21 10:33 06/11/21 10:33 06/11/21 10:33 - General well developed, well nourished, no distress - Eyes PERRL - ENT normal pinna - Neck no masses - Respiratory normal expansion - Cardiovascular Rhythm: regular - Abdomen Abdomen: soft, non tender Results - Labs 06/11/21 10:30 Abnormal Lab Results - Last 24 Hours (Table) 06/11/21 Range/Units 10:30 RBC 4.21 L (4.30-5.90) m/uL Assessment and Plan Assessment: Positive: Guard test. Recent prostate cancer diagnosis. Patient will undergo colonoscopy
[2021-06-11 11:09] LABS: Calcium 11.6 mg/dL (8.4-10.2); Potassium 4.4 mmol/L (3.5-5.1)
--- NOTE | 2021-06-11 11:11 | P.OP ---
Date of Procedure: 06/11/21 Preoperative Diagnosis: Positivecolon Guarded test Postoperative Diagnosis: Cecal polyp Procedure(s) Performed: Colonoscopy Anesthesia: MAC Surgeon: Jim Wheeler Pathology: other (Cecal polyp) Condition: stable Disposition: PACU Description of Procedure: The patient's placed on the endoscopy table in the lateral position. He received IV sedation. Digital rectal exam was performed which revealed no abnormalities. The flexible colonoscope was then placed patient anus and passed throughout the entire colon. The ileocecal valve was visualized. In the cecum there was a small polyp. This removed with the cold forcep. Scope was withdrawn. The remainder the ascending and transverse colon appeared normal. In the descending and; was mild diverticular changes. Scope was then brought back the rectum and this appeared normal. Scope withdrawn for patient.
[2021-06-11 11:23] VITALS: RESP 16
[2021-06-11 11:30] VITALS: BP 128/70; PULSE 68
== END 2021-06-11 11:49 | disposition home or self-care (01) ==
LOC: ORWHC2ENDO 10:03
PROVIDERS: ATTEND Surgery
DX: D12.0 Benign neoplasm of cecum (principal); I25.10 Atherosclerotic heart disease of native coronary artery without angina pectoris; I10 Essential (primary) hypertension; E78.5 Hyperlipidemia, unspecified; Z85.46 Personal history of malignant neoplasm of prostate; R01.1 Cardiac murmur, unspecified; E21.5 Disorder of parathyroid gland, unspecified; Z95.5 Presence of coronary angioplasty implant and graft; Z87.891 Personal history of nicotine dependence; Z80.8 Family history of malignant neoplasm of other organs or systems; Z79.02 Long term (current) use of antithrombotics/antiplatelets; Z79.82 Long term (current) use of aspirin; Z79.899 Other long term (current) drug therapy
CPT/HCPCS: 86900; 86901; 88305; 80048; 85027; 86850; 45380; J2001; J2704

== ENCOUNTER 2021-09-03 09:50 | Day surgery (SDC) | payer BC ==
[2021-08-31 12:47] VITALS: BMI 29.0
--- NOTE | 2021-09-02 22:53 | P.GSHP ---
History of Present Illness H&P Date: 09/02/21 Chief Complaint: Prostate cancer The patient is a 61-year-old white male found in May 2020 to have an elevated PSA level of 25.5. He underwent PTCA with stents around that time, and it was thus decided to hold off on performing a prostate ultrasound with biopsies. CHIVO revealed the prostate to be mildly enlarged with a left-sided nodule. He ultimately underwent a prostate ultrasound with biopsies 04/14/2021. The prostate volume was 28 mL. Four biopsies were obtained, all of which showed evidence of malignancy. The left apical biopsy showed Savannah 7 (4+3) adenocarcinoma involving 95% of the tissue, with focal perineural invasion. Biopsies of the left mid gland showed Nick 7 (3+4) adenocarcinoma involving up to 90% of the tissue. 95% of a right mid lobe biopsy showed Savannah 6 adenocarcinoma. A repeat PSA level on 08/14/2020 was 20.1. A recent bone scan and chest x-ray showed no metastases. CT scan of the pelvis showed a 1.1 cm nodular focus within the left lateral prostate, but no pelvic adenopathy. When his PSA level rian to 35.90 earlier this year, a PSMA PET/CT scan was obtained revealing abnormally increased uptake within the prostate and a single elongated portacaval node measuring less than 1 cm. The patient is felt to have locally advanced prostate cancer, and he understands the possibility of micrometastases despite the negative metastatic evaluation. - Constitutional Constitutional: Denies chills, Denies fever - Genitourinary (Female) Genitourinary: Reports nocturia Past Medical History Past Medical History: Coronary Artery Disease (CAD), Cancer, Chest Pain / Angina, Hyperlipidemia, Hypertension, Prostate Disorder Additional Past Medical History / Comment(s): NODULE ON PARATHYROID, heart murmer, cologuard test "irregular", prostate cancer History of Any Multi-Drug Resistant Organisms: None Reported Past Surgical History: Heart Catheterization With Stent Additional Past Surgical History / Comment(s): total 7 cardiac stents, last 2 cardiac stents 01/2021, colonoscopy Past Anesthesia/Blood Transfusion Reactions: No Reported Reaction Additional Past Anesthesia/Blood Transfusion Reaction / Comment(s): PT HAS NEVER RECEIVED GENERALIZED ANESTHESIA Date of Last Stent Placement:: 01/2021 Smoking Status: Former smoker - Past Family History Father Family Medical History: Cancer Additional Family Medical History / Comment(s): INDUSTRIAL DISEASE- ASBESTOS Medications and Allergies Home Medications Medication Instructions Recorded Confirmed Type Aspirin [Adult Low Dose Aspirin EC] 81 mg PO HS 05/22/20 08/31/21 History Atorvastatin [Lipitor] 40 mg PO HS 05/22/20 08/31/21 History Fish Oil/Dha/Epa [Fish Oil 1,200 1 each PO DAILY 05/22/20 08/31/21 History mg Fish Oil] Metoprolol Succinate (ER) [Toprol 25 mg PO HS 05/22/20 08/31/21 History XL] Clopidogrel [Plavix] 75 mg PO DAILY #90 tab 05/27/20 08/31/21 Rx Fenofibrate [Lofibra] 160 mg PO DAILY #90 tab 05/27/20 08/31/21 Rx Losartan [Cozaar] 50 mg PO DAILY 01/12/21 08/31/21 History icosapent ethyL [Icosapent Ethyl] 2 gm PO BID 01/12/21 08/31/21 History Allergies Allergy/AdvReac Type Severity Reaction Status Date / Time No Known Allergies Allergy Verified 08/31/21 12:26 Surgical - Exam - General well developed, well nourished, no distress - Respiratory normal respiratory effort - Abdomen Abdomen: soft, non tender, no guarding, no rigid, no rebound - Genitourinary normal penis with no external lesions, testicles non-tender - Rectum Normal sphincter tone, no masses, other (mildly enlarged, left lobe hard in consistency) - Psychiatric oriented to time, oriented to person, oriented to place, speech is normal, memory intact Results - Imaging CT scan - pelvis: report reviewed Assessment and Plan (1) Malignant neoplasm of prostate Status: Acute Code(s): C61 - MALIGNANT NEOPLASM OF PROSTATE SNOMED Code(s): 382827498 Plan: Robotic-assisted laparoscopic prostatectomy with bilateral pelvic lymphadenectomy. The procedure has been reviewed in detail with the patient. He is aware of potential risks, which include anesthesia, bleeding, infection, intestinal injury (which may require a colostomy), ureteral injury, swelling of the penis post-operatively, bladder neck contracture, urethral stricture, lymphocele, urinary leak, post-operative ileus, thrombophlebitis, wound separation, and urinary fistula. In addition, I went into great detail concerning the possibility of postop urinary incontinence, which may fail to resolve. The patient has also been advised of the possibility of treatment failure, and the possible need for adjuvant therapy. It was made clear to him that he is not a nerve-sparing candidate and therefore his potency cannot be preserved.
[~2021-09-03 09:50] MED LIST changes: +HEPARIN SODIUM,PORCINE/PF 5,000 UNIT/0.5 ML SYRINGE SQ PRN; -LACTATED RINGERS 1,000 ML IV SCH; -LIDOCAINE 1% (10MG/ML) FOR IV START INTRADERMA PRN
[2021-09-03] MEDS ORDERED: ONDANSETRON 4 MG/2 ML VIAL ONE (10:53)
[2021-09-03] MEDS ORDERED: DEXAMETHASONE SOD PHOSPHATE 4 MG/ML 1 ML VIAL ONE (12:41)
[2021-09-03] MEDS ORDERED: SUCCINYLCHOLINE CHLORIDE 100 MG/5 ML SYR IV ONE (12:41)
[2021-09-03] MEDS ORDERED: SODIUM CHLORIDE 0.9% (PF) 10 ML VIAL ONE (12:41)
[2021-09-03] MEDS ORDERED: ROCURONIUM 10 MG/ML (5 ML VIAL) IV ONE (12:41)
[2021-09-03] MEDS ORDERED: HYDROmorphone (PF) 1 MG/ML ONE (12:41)
[2021-09-03] MEDS ORDERED: PROPOFOL 10 MG/ML 20 ML VIAL IV ONE (12:41)
[2021-09-03] MEDS ORDERED: MIDAZOLAM 2 MG/2 ML VIAL ONE (12:41)
[2021-09-03] MEDS ORDERED: fentaNYL (PF) 50 MCG/ML 2 ML AMP ONE (12:41)
[2021-09-03] MEDS ORDERED: NEOSTIGMINE 1 MG/ML 10 ML VIAL ONE (12:41)
[2021-09-03] MEDS ORDERED: GLYCOPYRROLATE 0.2 MG/ML 2 ML VIAL ONE (12:41)
[2021-09-03] MEDS ORDERED: LIDOCAINE 2% INJ 20 MG/ML (2 ML VIAL) ONE (12:41)
[2021-09-03] MEDS ORDERED: ROPIVACAINE 5 MG/ML 30 ML VIAL ONE (12:41)
[2021-09-03] MEDS ORDERED: KETOROLAC 15 MG/ML 1 ML VIAL ONE (12:41)
[2021-09-03] MEDS ORDERED: METOPROLOL TARTRATE 5 MG/5 ML VIAL IVP ONE (12:41)
[2021-09-03] MEDS ORDERED: PHENYLEPHRINE-0.9% NACL SYG 1,000 MCG/10 ML SYRINGE ONE (12:41)
[2021-09-03] MEDS ORDERED: LACTATED RINGERS 1,000 ML IV ONE ×3 (12:46→15:00)
[2021-09-03] MEDS ORDERED: BUPIVACAINE (PF) 0.25% 30 ML VIAL SQ ONE (15:44)
[2021-09-03] MEDS ORDERED: ONDANSETRON 4 MG/2 ML VIAL IVP PRN (18:15)
[2021-09-03] MEDS ORDERED: KETOROLAC 15 MG/ML 1 ML VIAL IVP PRN (18:15)
[2021-09-03] MEDS ORDERED: HYDROmorphone 1 MG/ML 1 ML SYRINGE IVP PRN (18:15)
[2021-09-03] MEDS ORDERED: ACETAMINOPHEN TAB 325 MG TAB PO PRN (18:15)
--- NOTE | 2021-09-03 18:27 | P.OP ---
Date of Procedure: 09/03/21 Preoperative Diagnosis: Adenocarcinoma of the prostate Postoperative Diagnosis: Same Procedure(s) Performed: Robotic-assisted laparoscopic prostatectomy (RALP) with bilateral pelvic lymphadenectomy Anesthesia: LIOR Surgeon: Kingston Kelly Estimated Blood Loss (ml): 100 IV fluids (ml): 800 Condition: stable Disposition: PACU Indications for Procedure: The patient is a 61-year-old white male found in May 2020 to have an elevated PSA level of 25.5. He underwent PTCA with stents around that time, and it was thus decided to hold off on performing a prostate ultrasound with biopsies. CHIVO revealed the prostate to be mildly enlarged with a left-sided nodule. He ultimately underwent a prostate ultrasound with biopsies 04/14/2021. The prostate volume was 28 mL. Four biopsies were obtained, all of which showed evidence of malignancy. The left apical biopsy showed Nick 7 (4+3) adenocarcinoma involving 95% of the tissue, with focal perineural invasion. Biopsies of the left mid gland showed Nick 7 (3+4) adenocarcinoma involving up to 90% of the tissue. 95% of a right mid lobe biopsy showed Nick 6 adenocarcinoma. A repeat PSA level on 08/14/2020 was 20.1. A recent bone scan and chest x-ray showed no metastases. CT scan of the pelvis showed a 1.1 cm nod ular focus within the left lateral prostate, but no pelvic adenopathy. When his PSA level rian to 35.90 earlier this year, a PSMA PET/CT scan was obtained revealing abnormally increased uptake within the prostate and a single elongated portacaval node measuring less than 1 cm. The patient is felt to have locally advanced prostate cancer, and he understands the possibility of micrometastases despite the negative metastatic evaluation. Operative Findings: Vesical neck invasion. Description of Procedure: The patient was taken in the operating room and placed in the supine position. He was carefully positioned on a beanbag for stability. The abdomen and external genitalia were prepped and draped sterilely. A Solano catheter was in serted. The Veress needle was passed through the anterior abdominal wall immediately cephalad to the umbilicus, and insufflation was performed to a pressure of 20 mm Hg. Once insufflation was performed, the Veress needle was removed and a supraumbilical incision was made, through which an 8 mm camera port was placed. Under camera guidance, 3 8 mm robotic ports were placed, 2 on the left and one on the right. A 12 mm port was placed on the right lateral side for use as an assistant boys track coach port. A 5 mm port was placed to the right of the camera port for suction. The patient was placed in Trendelenburg position, and docking was then performed to the [employer] system utilizing a 4-arm approach. The abdomen was examined. The sigmoid colon was mobilized out of the pelvis. The peritoneum was incised lateral to the medial umbilical ligaments bilaterally, exposing the pubis. The peritoneum was then incised across the midline, allowing the bladder flap to be taken down. The endopelvic fascia was opened bilaterally, and muscular attachments from the urogenital diaphragm were swept away from the prostate. Extended bilateral pelvic lymphadenectomies were performed in the standard fashion. The peritoneal incisions were extended in a cephalad direction, and the vas deferens were divided bilaterally. Margins of dissection were the bifurcation of the iliac vessels proximally, the circumflex iliac vein distally, the genitofemoral nerve laterally, and the obturator nerve medially. A combination of sharp and blunt dissection was used. Care was taken to avoid any neurovascular injury, and the use of monopolar electrocautery was avoided immediately adjacent to neurovascular structures. The lymphatic package was clipped distally. No enlarged lymph nodes were encountered. There were no complications. The vesical neck was incised transversely, down to the lumen. The Solano catheter was brought out through the anterior vesical neck incision and was used for traction. The posterior aspect of the vesical neck was incised, such that the full-thickness of the vesical neck was divided. The anterior layer of the Denonvilliers fascia was incised, exposing the vas deferens. Each were isolated and divided. Next, each of the seminal vesicles were dissected away from adjacent tissues, and vascular attachments were cauterized and divided. The seminal vesicles were quite adherent to surrounding structures. The posterior leaf of Denonvilliers fascia was incised transversely, allowing entry into the plane between the prostate and rectum. With lateral spreading, this plane was developed down to the apex. This exposed the lateral vascular pedicles bilaterally. The da Angie vessel sealer was used to ligate and divide the vascular pedicles in an antegrade fashion, down to the apex. The left neurovascular bundle was widely excised The remaining apical attachments were swept away from the prostate. The dorsal venous complex was incised, as well as periurethral tissue. At this point, only the urethra remained intact. This was transected immediately distal to the prostatic apex using cold scissors. The specimen was placed within a specimen bag. After dividing the vesical neck, there appeared to be prostate tissue present on the posterior vesical neck. This was excised and sent for frozen section. It was positive for malignancy. An additional area on the posterior vesical neck was excised, and again was a positive frozen section. A last visible area showed focal positivity. Ultimately, several millimeters of the vesical neck was excised circumferentially with the hopes of attaining a negative margin. This was done to the full extent possible. The dorsal venous complex was sutured using a V-Loc suture in a running fashion. A second V-Loc suture was then used to place the Raciel stitch, incorporating the rhabdosphincter and the edge of Denonvilliers fascia. This allowed the bladder to be taken down to the urethra, leaving the vesical neck immediately adjacent to the urethra. The vesicourethral anastomosis was then performed using a V-Loc suture in a running fashion. After completing the anastomosis, an 18-Czech Solano catheter was placed and approximately 150 mL of 0.9 normal saline were instilled into the bladder. No extravasation of irrigant from the vesicourethral anastomosis was noted. A small amount of oozing was noted from t he vascular pedicles, so Surgicel was placed bilaterally. Tisseel was sprayed into the pelvis over the vascular pedicles, dorsal vein, and vesicourethral anastomosis. The patient was returned to the supine position. Undocking was performed, and the specimen bag sutures were passed through the camera port. After removing all the ports and allowing all of the CO2 to be released from the peritoneal cavity, the camera port incision was enlarged to allow removal of the surgical specimen. The fascia of this incision was then closed using 0 PDS suture in a running fashion. Each of the skin incisions were then closed using 4-0 Monocryl suture in a subcuticular fashion. Marcaine was injected at each of the incision sites. Dermabond was applied to each incision. The Solano catheter was conne cted to gravity drainage. All sponge and needle counts were correct. The patient tolerated the procedure well was taken to the recovery room in stable condition.
[2021-09-03] MEDS ORDERED: KETOROLAC 15 MG/ML 1 ML VIAL IVP ONE (19:05)
[2021-09-03] MEDS ORDERED: HYDROmorphone 0.5 MG/0.5 ML SYRINGE IVP ONE ×2 (19:07→19:13)
[2021-09-03] MEDS ORDERED: ARTIFICIAL TEARS-HYPROMELLOSE DROPS 15 ML BTL BOTH EYES PRN (20:08)
[2021-09-03] MEDS: HEPARIN SODIUM,PORCINE/PF 5,000 UNIT/0.5 ML SYRINGE SQ SCH (20:15)
[2021-09-03] MEDS: DEXTROSE 5%-0.45% NACL 1,000 ML IV SCH (20:20)
[2021-09-04] MEDS: DEXTROSE 5%-0.45% NACL 1,000 ML IV SCH (04:05)
[2021-09-04 04:07] VITALS: BP 102/65; PULSE 93; RESP 18; TEMP 97.7
--- NOTE | 2021-09-04 08:33 | P.DS ---
Providers Expected date of discharge: 09/04/21 Attending physician: Kingston Kelly Primary care physician: Mario Betancourt - Discharge Diagnosis(es) (1) Malignant neoplasm of prostate Current Visit: No Status: Acute Hospital Course: On the day of admission, the patient underwent an RALP with bilateral pelvic lymphadenectomy. Intraoperative findings were consistent with bladder neck invasion of his known prostate cancer. There were no intraoperative complications, and the perioperative course was unremarkable. On the first postoperative day, he reported minimal discomfort and was drinking plenty of fluids. He denied nausea, dyspnea, and chest pain. He was afebrile with stable vital signs. On examination, the abdomen was soft and non-distended. The incisions were clean, dry, and intact. The Solano catheter was draining clear yellow urine. Procedures: Robotic-assisted laparoscopic prostatectomy (RALP) with bilateral pelvic lymphadenectomy in 09/03/2021. Patient Condition at Discharge: Good Plan - Discharge Summary Discharge Rx Participant: No New Discharge Prescriptions: New Ciprofloxacin HCl [Cipro] 250 mg PO Q12HR #6 tablet Ketorolac [Toradol] 10 mg PO Q6HR PRN #12 tab PRN Reason: Pain No Action Fish Oil/Dha/Epa [Fish Oil 1,200 mg Fish Oil] 1 each PO DAILY Aspirin [Adult Low Dose Aspirin EC] 81 mg PO HS Metoprolol Succinate (ER) [Toprol XL] 25 mg PO HS Atorvastatin [Lipitor] 40 mg PO HS Fenofibrate [Lofibra] 160 mg PO DAILY #90 tab Clopidogrel [Plavix] 75 mg PO DAILY #90 tab icosapent ethyL [Icosapent Ethyl] 2 gm PO BID Losartan [Cozaar] 50 mg PO DAILY Discharge Medication List Aspirin [Adult Low Dose Aspirin EC] 81 mg PO HS 05/22/20 [History] Atorvastatin [Lipitor] 40 mg PO HS 05/22/20 [History] Fish Oil/Dha/Epa [Fish Oil 1,200 mg Fish Oil] 1 each PO DAILY 05/22/20 [History] Metoprolol Succinate (ER) [Toprol XL] 25 mg PO HS 05/22/20 [History] Clopidogrel [Plavix] 75 mg PO DAILY #90 tab 05/27/20 [Rx] Fenofibrate [Lofibra] 160 mg PO DAILY #90 tab 05/27/20 [Rx] Losartan [Cozaar] 50 mg PO DAILY 01/12/21 [History] icosapent ethyL [Icosapent Ethyl] 2 gm PO BID 01/12/21 [History] Ciprofloxacin HCl [Cipro] 250 mg PO Q12HR #6 tablet 09/04/21 [Rx] Ketorolac [Toradol] 10 mg PO Q6HR PRN #12 tab 09/04/21 [Rx] Follow up Appointment(s)/Referral(s): Kingston Kelly MD [STAFF PHYSICIAN] - 09/14/21 Activity/Diet/Wound Care/Special Instructions: Discharge home with Solano catheter. Instruct patient to use overnight drainage bag as well as urinary leg bag. Okay to shower. Diet as tolerated. No lifting, driving, or strenuous activity. Reassure patient that abdominal wall ecchymosis and penoscrotal swelling are normal. Instruct patient to begin taking antibiotics one day prior to Solano catheter removal. May resume aspirin immediately, and to resume Plavix in 5 days. Discharge Disposition: HOME SELF-CARE
[2021-09-04] MEDS: HEPARIN SODIUM,PORCINE/PF 5,000 UNIT/0.5 ML SYRINGE SQ SCH (09:20)
== END 2021-09-04 12:00 | disposition home or self-care (01) ==
LOC: OR 09:50 → 5NMEDONC 18:15 → OR 09-04 12:00
PROVIDERS: ATTEND Urology
DX: C61 Malignant neoplasm of prostate (principal); E78.5 Hyperlipidemia, unspecified; I10 Essential (primary) hypertension; I25.10 Atherosclerotic heart disease of native coronary artery without angina pectoris; Z79.02 Long term (current) use of antithrombotics/antiplatelets; Z79.82 Long term (current) use of aspirin; Z87.891 Personal history of nicotine dependence; Z95.5 Presence of coronary angioplasty implant and graft
CPT/HCPCS: 38571; S2900; 64999; 76942; 86850; 86900; 86901; 88305; 88307; 88309; 88331; 88341; 88342

== ENCOUNTER → 2021-10-05 | Outpatient (CLI) | payer BC | END | disposition home or self-care (01) | LOC: LABWHC1 09:18 | PROVIDERS: ATTEND Urology | DX: C61 Malignant neoplasm of prostate (principal) | CPT/HCPCS: 36415; 84153 ==

== ENCOUNTER → 2022-01-12 | Outpatient (CLI) | payer BC ==
[2022-01-12 16:33] LABS: ALT 43 U/L (10-49); AST 27 U/L (14-35); African American GFR (CKD) 81.2 (60.0-200.0); Albumin 4.6 g/dL (3.8-4.9); Albumin/Globulin Ratio 2.22 (1.60-3.17); Alkaline Phosphatase 99 U/L (41-126); BUN/Creat Ratio 15.36 Ratio (12.00-20.00); Blood Urea Nitrogen 17.2 mg/dL (9.0-27.0); Calcium 11.7 mg/dL (8.7-10.3); Carbon Dioxide 25.7 mmol/L (20.0-27.5); Chloride 105 mmol/L (96-109); Chol/HDL Ratio 4.15 Ratio; Globulin 2.1 g/dL (1.6-3.3); Glucose 104 mg/dL (70-110); Potassium 4.9 mmol/L (3.5-5.5); Sodium 141 mmol/L (135-145); Total Protein 6.7 g/dL (6.2-8.2)
[2022-01-12 17:24] LABS: Testosterone 6.34 ng/mL (86.98-780.10)
== END | disposition home or self-care (01) ==
LOC: LABWHC1 08:31
PROVIDERS: ATTEND Urology
DX: C61 Malignant neoplasm of prostate (principal); I10 Essential (primary) hypertension; E78.2 Mixed hyperlipidemia
CPT/HCPCS: 36415; 80053; 80061; 83970; 84153; 84403

== ENCOUNTER → 2022-04-24 | Outpatient (CLI) | payer BC | END | disposition home or self-care (01) | LOC: LABWHC1 08:14 | PROVIDERS: ATTEND Urology | DX: C61 Malignant neoplasm of prostate (principal) | CPT/HCPCS: 36415; 84153 ==

== ENCOUNTER → 2022-09-30 | Outpatient (CLI) | payer BC ==
[2022-09-30 16:14] LABS: ALT 43 U/L (10-49); AST 24 U/L (14-35); Albumin 4.7 d/dL (3.8-4.9); Albumin/Globulin Ratio 2.24 Ratio (1.60-3.17); Alkaline Phosphatase 124 U/L (41-126); Blood Urea Nitrogen 20.9 mg/dL (9.0-27.0); Calcium 10.2 mg/dL (8.7-10.3); Carbon Dioxide 26.5 mmol/L (21.6-31.8); Chloride 103 mmol/L (96-109); Globulin 2.1 d/dL (1.6-3.3); Glucose 99 mg/dL (70-110); LDL Cholesterol,Calculated 51.4 mg/dL (0.0-131.0); Potassium 4.7 mmol/L (3.5-5.5); Sodium 142 mmol/L (135-145); Total Bilirubin 0.5 mg/dL (0.3-1.2); Total Protein 6.8 d/dL (6.2-8.2)
== END | disposition home or self-care (01) ==
LOC: LABWHC1 09:17
PROVIDERS: ATTEND Urology
DX: C61 Malignant neoplasm of prostate (principal); E78.2 Mixed hyperlipidemia; D35.1 Benign neoplasm of parathyroid gland; R22.1 Localized swelling, mass and lump, neck
CPT/HCPCS: 36415; 80053; 80061; 83970; 84153

== ENCOUNTER → 2022-11-08 | Outpatient (CLI) | payer BC ==
--- NOTE | 2022-11-08 10:15 | US ---
EXAMINATION TYPE: US thyroid st tissue head/neck DATE OF EXAM: 11/08/2022 COMPARISON: CT 07/04/2020, nuclear medicine 07/04/2020 CLINICAL INDICATION: Male, 62 years old with history of E21.3; Hx right parathyroid adenoma with surg ical removal x 6 weeks ago GLAND SIZE: Right Lobe: 3.3 x 1.6 x 1.1 cm Overall Parenchyma: homogenous Left Lobe: 3.3 x 1.4 x 1.1 cm Overall Parenchyma: homogeneous Isthmus Thickness: 0.4 cm NODULES RIGHT: # of nodules measured on right: 1 1. 0.5 X 0.5 x 0.4 cm, lower medial, unknown etiology not clearly within the thyroid gland and is f elt to be next to the thyroid gland. LEFT: # of nodules measured on left: 0 ISTHMUS: # of nodules measured in the isthmus: 0 Bilateral neck scanned, no evidence of lymphadenopathy. Area of right parathyroid adenoma scanned with no prominent lesion or fluid collection visualized at time of scan. IMPRESSION: Nodule seen medial and inferior to the right thyroid gland unknown etiology could represe nt postsurgical change. Consider follow-up CT neck with IV contrast.
== END | disposition home or self-care (01) ==
LOC: RADUSWWP 08:56
PROVIDERS: ATTEND Student in an Organized Health Care Education/Training Program
DX: E21.3 Hyperparathyroidism, unspecified (principal); E04.1 Nontoxic single thyroid nodule; Z86.018 Personal history of other benign neoplasm
CPT/HCPCS: 76536

== ENCOUNTER → 2022-12-24 | Outpatient (CLI) | payer BC ==
--- NOTE | 2022-12-24 13:37 | BD ---
EXAMINATION TYPE: Axial Bone Density DATE OF EXAM: 12/24/2022 CLINICAL HISTORY: 62 years old Male. ICD-10 CODE: E21.3 hyperparathyroidism Height: 66.25 Weight: 196.3 FRAX RISK QUESTIONS: Alcohol (3 or more units per day): yes Family History (Parent hip fracture): no Glucocorticoids (More than 3mos): no History of Fracture in Adulthood: no Secondary Osteoporosis: 1. Type 1 Diabetes: no 2. Hyperthyroidism: no 3. Menopause before 45: na 4. Malnutrition: na 5. Chronic liver disease: na Rheumatoid Arthritis: na Current Tobacco Use: na RISK FACTORS HISTORY OF: Hip Fracture (Right/Left): no Spine Fracture: no History of Wrist Fracture: Bilateral When: As a child Surgery to Spine/Hip(right/left)/Wrist (right/left): no Family History of Osteoporosis: no Active: yes Diet low in dairy products/other sources of calcium: yes Postmenopausal woman: na If Premenopausal, do you have irregular periods: na Take estrogen and/or progesterone medications: na How long: na Lost more than 2 inches in height since high school: no Frequent falls: no Poor Health: no Hyperparathyroidism: yes, removed parathyroid 2 months ago Adrenal Insufficiency: no MEDICATIONS: Prednisone or other steroids: no Thyroid Medications: no Osteoporosis Medications: no Additional Medications: Cholesterol Meds, BP Meds, Calcium, Additional History: EXAM MEASUREMENTS: Bone mineral densitometry was performed using the [employer] System. Bone mineral density as measured about the Lumbar spine is: ----- L1-L4(G/cm2): 1.097 T Score Values are as follows: ----- L1: -2.1 ----- L2: -1.5 ----- L3: 0.1 ----- L4: 0.5 ----- L1-L4: -0.7 Z Score Values are as follows: ----- L1: -2.3 ----- L2: -1.7 ----- L3: -0.2 ----- L4: 0.2 ----- L1-L4: -1.0 BASELINE STUDY Bone mineral density about the R hip (g/cm2): 0.989 Bone mineral density about the L hip (g/cm2): 1.042 T Score values are as follows: -----R Neck: -0.9 -----L Neck: -0.6 -----R Total: -0.5 -----L Total: -0.1 Z Score values are as follows: -----R Neck: -0.4 -----L Neck: -0.1 -----R Total: -0.5 -----L Total: -0.1 BASELINE STUDY FRAX%s: The graph provided illustrates a 6.6 % chance for a major osteoporotic fx and a 1.0% chance f or the hips probability for fx in 10 years time. IMPRESSION: Normal (Values between +1 and -1 indicate normal bone mass). Consider repeating this study in 5 year s or sooner if there is some new clinical indication. NOTE: T-SCORE=SD OF THE YOUNG ADULT MEAN.
== END | disposition home or self-care (01) ==
LOC: RADBDWWP 12:27
PROVIDERS: ATTEND Internal Medicine
DX: C73 Malignant neoplasm of thyroid gland (principal); E21.3 Hyperparathyroidism, unspecified; M85.88 Other specified disorders of bone density and structure, other site
CPT/HCPCS: 77080

== ENCOUNTER 2023-03-18 09:03 | Day surgery (SDC) | payer BC ==
[2023-03-18 09:47] VITALS: BP 157/96; PULSE 74; RESP 16; TEMP 97.4
--- NOTE | 2023-03-18 10:58 | US ---
ULTRASOUND GUIDED FNA OF LEFT CHEST WALL MASS: CLINICAL HISTORY: Left chest wall mass FINDINGS: Preliminary imaging demonstrated no definite soft tissue mass. IMPRESSION: 1. No mass identified by ultrasound. The patient would benefit from a CT scan for complete workup of the area of concern.
[2023-03-18 12:00] LABS: ALT 69 U/L (4-49); AST 47 U/L (17-59)
[2023-03-18 16:07] LABS: Chol/HDL Ratio 3.91 Ratio; LDL Cholesterol,Calculated 46.2 mg/dL (0.0-131.0)
== END 2023-03-18 10:45 | disposition home or self-care (01) ==
LOC: RADPROMAIN 09:03
PROVIDERS: ATTEND Internal Medicine
DX: R22.2 Localized swelling, mass and lump, trunk (principal)
CPT/HCPCS: 76536; 80061; 84450; 84460

== ENCOUNTER → 2023-03-18 | Outpatient (CLI) | payer BC | END | disposition home or self-care (01) | LOC: LABWHC1 10:34 | PROVIDERS: ATTEND Nurse Practitioner Adult Health | DX: Z53.9 Procedure and treatment not carried out, unspecified reason (principal) ==

== ENCOUNTER → 2023-05-12 | Outpatient (CLI) | payer BC | END | disposition home or self-care (01) | LOC: LABPAT 08:22 | PROVIDERS: ATTEND Urology | DX: Z53.9 Procedure and treatment not carried out, unspecified reason (principal) ==

== ENCOUNTER → 2023-05-12 | Outpatient (CLI) | payer BC ==
[2023-05-12 15:17] LABS: HCT 43.3 % (39.6-50.0); HGB 14.8 g/dL (13.0-17.0); MCH 32.5 pg (27.0-32.0); MCHC 34.2 g/dL (32.0-37.0); Mean Platelet Volume 9.6 FL (9.5-12.2); NRBC Per 100 WBC 0 X 10*3/uL (0.00-0.01); Platelet Count 272 X 10*3/uL (140-440); RBC 4.56 X 10*6/uL (4.40-5.60); WBC 6.37 X 10*3/uL (4.50-10.00)
[2023-05-12 15:39] LABS: Blood Urea Nitrogen 16.7 mg/dL (9.0-27.0); Carbon Dioxide 24.2 mmol/L (21.6-31.8); Chloride 95 mmol/L (96-109); Potassium 4.9 mmol/L (3.5-5.5); Prostate Specific Antigen 0.04 ng/mL (0.000-4.500); Sodium 129 mmol/L (135-145)
== END | disposition home or self-care (01) ==
LOC: LABPAT 08:25
PROVIDERS: ATTEND Internal Medicine Interventional Cardiology
DX: Z01.812 Encounter for preprocedural laboratory examination (principal); I25.10 Atherosclerotic heart disease of native coronary artery without angina pectoris
CPT/HCPCS: 36415; 80051; 82565; 84153; 84520; 85027

== ENCOUNTER 2023-05-17 09:01 | Day surgery (SDC) | payer BC ==
[2023-05-11 13:22] VITALS: BMI 29.9
[~2023-05-17 09:01] MED LIST changes: +ALPRAZolam 0.25 MG TAB PO PRN; +ALPRAZolam 0.5 MG TAB PO PRN; +ASPIRIN 325 MG TAB PO STA; +HEPARIN SODIUM,PORCINE (1 ML) 2,500 UNIT in SODIUM CHLORIDE 0.9% 250 ML IRRIGATION PRN; +HEPARIN SODIUM,PORCINE 10,000 UNIT in SODIUM CHLORIDE 0.9% 1,000 ML IRRIGATION PRN; -HEPARIN SODIUM,PORCINE/PF 5,000 UNIT/0.5 ML SYRINGE SQ PRN; +NITROGLYCERIN SL TABS 0.4 MG TAB SUBLINGUAL PRN
[2023-05-17] MEDS: SODIUM CHLORIDE 0.9% 1,000 ML in EMPTY BAG 1 BAG IV SCH (09:18)
[2023-05-17 09:29] LABS: Basophils # (A) 0.1 k/uL (0-0.2); Basophils % (A) 1 %; Eosinophils # (A) 0.2 k/uL (0-0.7); Eosinophils % (A) 4 %; HCT 39.7 % (39.0-53.0); HGB 13.6 gm/dL (13.0-17.5); Lymphocytes # (A) 2.4 k/uL (1.0-4.8); Lymphocytes % (A) 47 %; MCH 32.8 pg (25.0-35.0); MCHC 34.3 g/dL (31.0-37.0); MCV 95.8 fL (80.0-100.0); Mean Platelet Volume 7.5; Monocytes # (A) 0.4 k/uL (0-1.0); Monocytes % (A) 8 %; Neutrophils # (A) 1.9 k/uL (1.3-7.7); Neutrophils % (A) 38 %; Platelet Count 202 k/uL (150-450); RBC 4.14 m/uL (4.30-5.90); RDW 12.9 % (11.5-15.5)
[2023-05-17 09:36] VITALS: RESP 18
[2023-05-17 09:39] LABS: African American GFR (CKD) >90 (>60 ml/min/1.73 sqM); Anion Gap 7 mmol/L; Blood Urea Nitrogen 20 mg/dL (9-20); Calcium 9.2 mg/dL (8.4-10.2); Carbon Dioxide 24 mmol/L (22-30); Chloride 110 mmol/L (98-107); Glucose 97 mg/dL (74-99); Non-African American GFR(CKD) >90 (>60 ml/min/1.73 sqM); Potassium 4.8 mmol/L (3.5-5.1); Sodium 141 mmol/L (137-145)
[2023-05-17] MEDS ORDERED: VERAPAMIL 2.5 MG/ML 2 ML AMP ONE (10:02)
[2023-05-17] MEDS ORDERED: LIDOCAINE 1% INJ 10MG/ML (20 ML MDV) ONE (10:03)
[2023-05-17] MEDS ORDERED: HEPARIN SODIUM 1,000 UN/ML (10ML VL) ONE (10:03)
[2023-05-17] MEDS ORDERED: fentaNYL (PF) 50 MCG/ML 2 ML AMP ONE (10:03)
[2023-05-17] MEDS: fentaNYL (PF) 50 MCG/ML 2 ML AMP IVP ONE (10:21)
[2023-05-17] MEDS: LIDOCAINE 1% INJ 10MG/ML (20 ML MDV) SQ ONE (10:30)
[2023-05-17] MEDS: MIDAZOLAM 2 MG/2 ML VIAL IVP ONE ×2 (10:31→10:46)
[2023-05-17] MEDS: VERAPAMIL SYRINGE (5 MG/10 ML) INTRAARTER ONE (10:33)
[2023-05-17] MEDS: HEPARIN SODIUM 1,000 UN/ML (10ML VL) IVP ONE ×5 (10:35→11:33)
[2023-05-17] MEDS ORDERED: CLOPIDOGREL 75 MG TAB ONE (10:42)
[2023-05-17] MEDS: CLOPIDOGREL 75 MG TAB PO ONE (10:46)
[2023-05-17] MEDS: fentaNYL (PF) 50 MCG/1 ML VIAL IVP ONE (11:03)
[2023-05-17] MEDS: IOPAMIDOL-370 100ML BTL INJ ONE ×2 (11:09→11:25)
[2023-05-17] MEDS ORDERED: MAG HYDROX/AL HYDROX/SIMETH 30 ML CUP PO PRN (11:43)
[2023-05-17] MEDS ORDERED: RX INFO: IV CONTRAST WAS GIVEN 1 EACH MISC MISCELLANE PRN (11:43)
[2023-05-17] MEDS ORDERED: NITROGLYCERIN SL TABS 0.4 MG TAB SUBLINGUAL PRN (11:43)
[2023-05-17] MEDS ORDERED: ZOLPIDEM 5 MG TAB PO PRN (11:43)
[2023-05-17] MEDS ORDERED: ATROPINE SULFATE 0.1 MG/ML 10ML SYRINGE IV PRN (11:43)
[2023-05-17] MEDS ORDERED: SODIUM CHLORIDE 0.9% 1,000 ML in EMPTY BAG 1 BAG IV SCH (11:45)
--- NOTE | 2023-05-17 11:54 | P.CARDCATH ---
Date of Procedure: 05/17/23 Description of Procedure: Cardiac Catheterization: The patient is a 63-year-old male with a known history of CAD status post stenting of the left circumflex and RCA in 2020 who has been complaining of episodes of dyspnea chest discomfort and had an abnormal MPI. Recommendations were made regarding cardiac catheterization, the risks and the complications were discussed with the patient who is in full understanding and agreement. Procedure Description: Patient was brought to medical laboratory technologist in fasting semi-sedated state after receiving Fentanyl and Benadryl achieiving moderate conscious sedated state. Using Xylocaine Anesthesia and modified Seldinger technique, a 6-[place] sheath was introduced in the right radial artery . Subsequently, selective coronary angiography was performed using a 5-[place] 3.5 bend Kee catheter. Multiple views of the coronary artery including hemiaxial views were obtained. The 5 [place] pigtail catheter was used to cross the aortic valve and LVEDP was calculated. PCI: A 6 [place] 0.75 guiding catheter was introduced and after cannulating the right coronary ostium a 0.014 BMW J-wire was positioned in the distal PLV. Subsequently a [place] eye IVUS catheter was introduced and images were obtained that revealed good apposition of the stents with evidence of neointimal hyperplasia. Subsequently a 3.0 x 20 mm NC trek and subsequently 3.25 x 15 mm NC trek balloon was advanced and inflations were done at a maximum of 12 jing, but because of the inability to maintain the position of the balloon a score flex 3.5 x 20 mm balloon and subsequently an AngioSculpt 3.5 x 15 mm balloon was advanced and inflations and a maximum of 12 jing were done. Subsequently a 4.5 x 15 mm NC trek balloon was advanced and inflations in the mid RCA were done at 12 jing. After the last inflation the wire was removed and revealed stable successful angioplasty. Following that, catheter and sheath were removed. Hemostasis was obtained with deployment of vascular band . There was no immediate complication. Patient was returned to room in stable condition. Of note, the patient received a total of 10,000 units of intravenous heparin as well as intra-arterial verapamil. He received an oral loading dose of clopidogrel. He had no chest discomfort or EKG changes, his ACT was monitored. Findings: Left main: This is a large sized vessel bifurcating into LAD and left circumflex, left main has no obstructive disease LAD: This is a large sized vessel, reaching to the apex with a wraparound apex segment, giving rise to 2 diagonal branches, the LAD and its branches have no evidence of high-grade stenosis. Left circumflex: This is a nondominant vessel giving rise to 2 obtuse marginal branch. The stented segment in the obtuse marginal branch is patent with no evidence of in-stent restenosis RCA: This is a large dominant vessel, bifurcating into PDA and PLV. At the bifu rcation of the PDA and the PLV and the stented segment in the PLV there is a 90% in-stent restenosis the takeoff of the PDA has a 50 %. The mid RCA and proximal RCA have 50% in-stent restenosis. Left Ventriculogram: Not performed Hemodynamics: There was no gradient across the aortic valve, LVEDP was 12-14 mmHg Conclusion: 1. In-stent restenosis at the ostium of the right PLV 2. Mild in-stent restenosis in the mid RCA 3. No significant disease in the LAD and left circumflex 4. Successful angioplasty of the right PLV ostium with reduction stenosis from 90% to less than 30%, the patient has 2 layers of stent in that segment. Recommendations: The patient will continue on aspirin, Plavix without any interruption for 6 months in addition to aggressive coronary risks modifications, attempting to maintain LDL below 70 mg/dL. If he has evidence of restenosis then he can be evaluated for intracoronary radiation or laser treatment. The findings and the recommendations were discussed with the patient and the family and they were in full understanding and agreement. Duration of sedation is 65 minutes.
[2023-05-17 15:32] VITALS: BP 136/78; PULSE 68
[2023-05-17] MEDS ORDERED: METOPROLOL SUCCINATE (ER) 25 MG TAB.ER.24H PO SCH (21:00)
[2023-05-17] MEDS ORDERED: ATORVASTATIN 40 MG TAB PO SCH (21:00)
[2023-05-18] MEDS ORDERED: LOSARTAN 50 MG TAB PO SCH (09:00)
[2023-05-18] MEDS ORDERED: SERTRALINE 50 MG TAB PO SCH (09:00)
[2023-05-18] MEDS ORDERED: EZETIMIBE 10 MG TAB PO SCH (09:00)
[2023-05-18] MEDS ORDERED: CLOPIDOGREL 75 MG TAB PO SCH ×2 (09:00)
[2023-05-18] MEDS ORDERED: ASPIRIN 81 MG PO SCH (09:00)
== END 2023-05-17 15:32 | disposition home or self-care (01) ==
LOC: CATHCVL 09:01
PROVIDERS: ATTEND Internal Medicine Interventional Cardiology
DX: T82.855A Stenosis of coronary artery stent, initial encounter (principal); I25.10 Atherosclerotic heart disease of native coronary artery without angina pectoris; I10 Essential (primary) hypertension; E78.5 Hyperlipidemia, unspecified; Z82.49 Family history of ischemic heart disease and other diseases of the circulatory system; Z87.891 Personal history of nicotine dependence; Z79.51 Long term (current) use of inhaled steroids; Z79.82 Long term (current) use of aspirin; Z79.899 Other long term (current) drug therapy; Z95.5 Presence of coronary angioplasty implant and graft
CPT/HCPCS: 92978; 93458; 92920; 80048; 85025; C1769 ×3; C1894; C1753; C1887; C1725 ×5; J2250; J2001; J3010 ×2; J1644; Q9967

== ENCOUNTER → 2023-08-24 | Outpatient (CLI) | payer BC ==
[2023-08-24 15:02] LABS: ALT 48 U/L (10-49); AST 42 U/L (14-35); Albumin 4.9 g/dL (3.8-4.9); Albumin/Globulin Ratio 1.96 Ratio (1.60-3.17); Alkaline Phosphatase 80 U/L (41-126); BUN/Creat Ratio 20.22 Ratio (12.00-20.00); Blood Urea Nitrogen 18.2 mg/dL (9.0-27.0); Calcium 9.6 mg/dL (8.7-10.3); Carbon Dioxide 23.3 mmol/L (21.6-31.8); Chloride 104 mmol/L (96-109); Chol/HDL Ratio 5.94 Ratio; Globulin 2.5 g/dL (1.6-3.3); Glucose 94 mg/dL (70-110); Potassium 4.8 mmol/L (3.5-5.5); Sodium 140 mmol/L (135-145); Total Bilirubin 0.4 mg/dL (0.3-1.2); Total Protein 7.4 g/dL (6.2-8.2)
== END | disposition home or self-care (01) ==
LOC: LABWHC1 08:23
PROVIDERS: ATTEND Internal Medicine Interventional Cardiology
DX: E78.2 Mixed hyperlipidemia (principal)
CPT/HCPCS: 36415; 80053; 80061; 83721

== ENCOUNTER → 2023-11-23 | Outpatient (CLI) | payer BC | END | disposition home or self-care (01) | LOC: LABWHC1 08:40 | PROVIDERS: ATTEND Internal Medicine Interventional Cardiology | DX: C61 Malignant neoplasm of prostate (principal); E78.2 Mixed hyperlipidemia | CPT/HCPCS: 36415; 80061; 84153; 84450; 84460 ==